=== PATIENT | female | born 1950 | race African-American/Black ===

== ENCOUNTER → 2023-10-09 | Day surgery (SDC) | payer MEDICARE, OTHER ==
[~2023-10-09] VITALS: Ht 171.4 cm; Wt 69.9 kg
[~2023-10-09] MED LIST: ALLO100T PO; ASPI-1497 MT; ATOR20TA65 PO; BUPIVACAINE HCL/PF 0.5% (5MG/ML) 10ML ONE; CEFAZOLIN SODIUM 1000MG/VIAL ONE; CINA60 MT; CLON0.2T PO; CLOP-31 MT; DEXAMETHASONE 4MG/ML 1ML VIAL ONE; ESOM40CA53 PO; FENTANYL CITRATE/PF 50MCG/ML 2ML VIAL IV PRN; FENTANYL CITRATE/PF 50MCG/ML 2ML VIAL ONE; GLYCOPYRROLATE 0.2 MG/ML 2ML VIAL ONE; HYDROMORPHONE HCL/PF 2MG/ML CPJ IV PRN; ISOS1TAB2 MT; MEPERIDINE HCL/PF 25MG/ML CPJ IV PRN; MIDAZOLAM HCL 2 MG/2 ML VIAL ONE; NEBI20TA4 PO; NIFE-32 PO; ONDANSETRON HCL 4MG/2ML INJ IV PRN; ONDANSETRON HCL 4MG/2ML INJ ONE; PROPOFOL 200MG/20ML VIAL IV ONE; ROCURONIUM BROMIDE 10MG/ML VIAL 5ML IV ONE; SKIN ADHESIVE 0.7 GM EA TOP ONE; SODIUM CHLORIDE 0.9% 1,000 ML IV SCH
[2023-10-09 08:29] LABS: CALCIUM 8.6 mg/dL (8.7-10.4); CREATININE 2.1 mg/dL (0.6-1.0); POTASSIUM 4.7 mEq/L (3.5-5.1)
[2023-10-09 13:16] VITALS: BP 156/72; PULSE 72; RESP 19
[2023-10-09] MEDS: ACETAMINOPHEN WITH CODEINE 300/30MG TABLET PO NR (13:16)
== END | disposition home or self-care (01) ==
LOC: OR 07:17
PROVIDERS: ATTEND Surgery
DX: K80.10 Calculus of gallbladder with chronic cholecystitis without obstruction (principal); I10 Essential (primary) hypertension; E78.00 Pure hypercholesterolemia, unspecified; M10.9 Gout, unspecified; E05.90 Thyrotoxicosis, unspecified without thyrotoxic crisis or storm; Z90.710 Acquired absence of both cervix and uterus; Z98.890 Other specified postprocedural states; Z79.899 Other long term (current) drug therapy
CPT/HCPCS: 80048; 82962; 36415; 88304; 47562; J3010; J3490 ×3; J0690; J1100; J2250; J2405; J2704; A4217 ×2; Z7610 ×23; J7030